=== PATIENT | female | born 1970 | race Caucasian/White ===

== ENCOUNTER 2024-01-16 08:14 | Day surgery (SDC) | payer OTHER ==
[~2024-01-16] VITALS: Ht 157.5 cm; Wt 77.1 kg
[2024-01-16] MEDS ORDERED: MIDAZOLAM HCL 5 MG/5 ML VIAL ONE (10:54)
[2024-01-16] MEDS ORDERED: MEPERIDINE 100 MG INJ. 100 MG/ML VIAL ONE (10:54)
[2024-01-16 12:18] VITALS: O2SAT 97
[2024-01-16 14:57] VITALS: BP_SYST 130; PULSE 79; RESP 17
== END 2024-01-16 12:18 | disposition home or self-care (01) ==
LOC: SDS 08:14 → SMU 08:15 → SDS 12:18
PROVIDERS: ATTEND Internal Medicine Gastroenterology
DX: K59.00 Constipation, unspecified (principal); D12.3 Benign neoplasm of transverse colon; K64.8 Other hemorrhoids; I10 Essential (primary) hypertension; G43.909 Migraine, unspecified, not intractable, without status migrainosus
CPT/HCPCS: 45385; 99152; 88305; G0378; J2250; J2175